=== PATIENT | female | born 1970 | race Caucasian/White ===

== ENCOUNTER 2017-10-28 02:08 | Inpatient (IN) | payer OTHER, MEDICARE ==
[~2017-10-28] VITALS: Ht 165.1 cm; Wt 89.5 kg
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
[2017-10-28] MEDS ORDERED: BACLOFEN20 M1 PO (02:25)
[2017-10-28] MEDS ORDERED: NAPRELAN PO (02:26)
[2017-10-28] MEDS ORDERED: MINIPRESS2 M1 PO (02:26)
[2017-10-28] MEDS ORDERED: VALIUM2 M1 PO (02:27)
[2017-10-28 03:38] LABS: ABSOLUTE BASOPHIL COUNT 0 /CUMM (0.0-0.2); ABSOLUTE EOSINOPHIL COUNT 0.1 /CUMM (0.0-0.7); ABSOLUTE GRANULOCYTE CT 5.3 /CUMM (1.4-6.5); ABSOLUTE LYMPH COUNT 2.8 /CUMM (1.2-3.4); ABSOLUTE MONOCYTE COUNT 0.5 /CUMM (0.10-0.60); BASOPHIL % 0.4 % (0.0-2.0); EOSINOPHIL % 1.7 % (0-5); GRANULOCYTE % 59.5 % (42.2-75.2); HEMATOCRIT 37.3 % (37-47); MEAN CORPUSCULAR HGB 28.4 PG (27.0-31.0); MEAN CORPUSCULAR HGB CONC 33.4 G/DL (33.0-37.0); MEAN CORPUSCULAR VOLUME 85.2 FL (81.0-99.0); MEAN PLATELET VOLUME 9.3 FL (7.4-10.4); PLATELET COUNT 343 /CUMM (130-400); RBC DISTRIBUTION WIDTH 14.3 % (11.5-14.5); RED BLOOD CELL CT 4.38 /CUMM (4.20-5.40); WHITE BLOOD CELL COUNT 8.8 /CUMM (4.8-10.8)
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
[2017-10-28] MEDS ORDERED: ABILIFY10 M1 PO (12:06)
[2017-10-28] MEDS ORDERED: LAMOTRIGINE25 M3 PO (12:06)
[2017-10-28] MEDS ORDERED: TIVICAY50 M1 PO (12:07)
[2017-10-28] MEDS ORDERED: LATUDA60 M1 PO (12:07)
[2017-10-28] MEDS ORDERED: DESCOVY 200-251 EACH PO (12:07)
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
[2017-10-30 16:24] VITALS: BP 132/86
[2017-10-30 17:00] VITALS: BP 132/86
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
[2017-10-30 20:04] VITALS: BP 137/93
[2017-10-30 20:09] VITALS: BP 137/93
[2017-10-31] VITALS (7 sets, daily range): BP systolic 121–142; BP diastolic 62–91
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
[2017-11-01] VITALS (7 sets, daily range): BP systolic 119–137; BP diastolic 64–78
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
--- NOTE | 2017-11-01 16:04 | SOCIAL WORKER PROG NOTE PSYCH ---
Social Work Progress Note Progress Note This fiction and nonfiction writer prose spoke with Rosa Elena at [facility] who stated that they continue to look for a fci this patient can go to. She agreed to call this fiction and nonfiction writer prose with updates and confirmed this fiction and nonfiction writer prose's phone number. This fiction and nonfiction writer prose met with the patient. She stated that she spoke with her mobile developer and learned that she does not have a warrant and that probation does not need to be contacted regarding this matter. Patient was informed of the conversation this fiction and nonfiction writer prose had with Rosa Elena at [facility]. Upon her request, patient and this fiction and nonfiction writer prose contacted [facility] and spoke with Dina who stated that she is waiting to hear from a fci in [place] and would contact this fiction and nonfiction writer prose once she has spoken with them. Patient stated that she is on a wait list with the [facility] inpatient unit, but would like to attend [facility] first. She was agreeable to a family meeting with her friend, Johnathon Morin. He was contacted by phone ) and agreed to call this fiction and nonfiction writer prose with some meeting time options for tomorrow. This fiction and nonfiction writer prose spoke with patient's mother, Larissa ([phone]) who lives in [place], [place], at patient's request. Larissa discussed patient's history of treatment non-compliance or completing a program only to revert to past behaviors. Larissa expressed concerns about patient's safety regarding other people being aggressive or unsafe towards her. Larissa denied any concerns about the patient being unsafe towards herself or others. Larissa was informed of ongoing effort to identify a place for the patient to discharge to as well as treatment. Larissa thanked this fiction and nonfiction writer prose for the call and stated that the patient has reported "only good things to say about the hospital []." Referral form and medication list was faxed to [facility] in [facility].
--- NOTE | 2017-11-01 17:30 | SOCIAL WORKER PROG NOTE PSYCH ---
Social Work Progress Note Progress Note This proposal writer received call from Keely at the [facility]. She stated that they have a bed available and that the patient could be accepted tomorrow (rather than tonight) if more time is needed to schedule outpatient treatment. She recommended [facility] or [place]. Keely stated that the living arrangement allows for the patient to have a room to her own and stated that not all residents are part of their program. Keely inquire about reason for hospital admission as well as substance use. She stated that she would continue to search for a longer term intermediate as this one is 3-5 days or up to a week. (Patient was agreeable to this.) Keely also stated that she would explore shelters that offer more support and will be in contact with this proposal writer tomorrow.
[2017-11-02] VITALS (8 sets, daily range): BP systolic 134–141; BP diastolic 63–79
--- NOTE | 2017-11-02 14:13 | CP SOUTH PROGRESS NOTE PSYCH ---
Psych (Inpt) Progress Note Progress Note Include the following elements, when applicable: Involvement in the active treatment of the patient with behavioral observations of the patient and the patient's response to the treatment. Review of the ongoing treatment process in the context of the treatment plan. Indication of how multi-disciplinary staff members are carrying out the treatment plan. Plans for future interventions and recommendations for revision of the treatment plan. Liaison with other physicians/providers. Progress Note: Case and treatment plan discussed in team meeting. Staff reports that the patient is denying suicidal ideation. Appearing a little bit labile and disorganized. Easily agitated. It seemed as though patient might been placed at the [facility] in [place] but that fell through, as that setting is not structured enough. Urine for chlamydia returned negative but it was not run for GC. I have ordered GC as an add-on. Patient seen at 11:30 AM. She was napping prior to meeting with me in office. Affect is irritable. She reports she is angry because she lost her bed in [place] at the [facility]. States she does not need staff support wherever she is placed. Feels frustrated. Reports she has lots of things to take care of (on the outside). Reports she has a court date on Monday. She seems upset. Her thinking is mildly disorganized. Mood: frustrated. Rates sad mood 0/10. Rates anxiety 4/10 and she attributes this to not being on benzodiazepines. Denies feeling hopeless, helpless, worthless or guilty. Denies active and passive suicidal ideation. Denies homicidal ideation. Denies auditory and visual hallucinations and paranoid ideation. Reports sleeping well. Reports appetite and energy are good. Tolerating medications except reports dry mouth. Patient agrees to increase lithium dose to 300 mg every morning and 600 mg nightly. IMPRESSION: Slow progress. Continue present treatment plan. Remains somewhat labile. We continued to look into placement options for the patient. She indicated she would be signing-in voluntarily.
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
[2017-11-03 07:36] VITALS: BP 136/72
[2017-11-03 07:44] VITALS: BP 136/72
[2017-11-03 11:57] VITALS: BP 127/75; BP 138/64
[2017-11-03] MEDS ORDERED: PRAZOSIN HCL2 M1 PO (12:07)
[2017-11-03] MEDS ORDERED: LITHIUM CARBON300 M4 PO (12:07)
[2017-11-03] MEDS ORDERED: TRAZODONE HCL50 M1 PO (12:07)
[2017-11-03] MEDS ORDERED: LATUDA120 M1 PO (12:07)
[2017-11-03] MEDS ORDERED: NICORETTE2 M2 PO (12:07)
[2017-11-03] MEDS ORDERED: ONDANSETRON ODT4 M1 PO (12:07)
[2017-11-03] MEDS ORDERED: GABAPENTIN300 M2 PO (12:07)
[2017-11-03] MEDS ORDERED: ONE DAILY MULT1 EAC2 PO (12:07)
[2017-11-03] MEDS ORDERED: OMEPRAZOLE20 M2 PO (12:07)
[2017-11-03] MEDS ORDERED: LORATADINE10 M1 PO (12:07)
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
--- NOTE | 2017-11-03 14:28 | CP SOUTH PROGRESS NOTE PSYCH ---
Psych (Inpt) Progress Note Progress Note Include the following elements, when applicable: Involvement in the active treatment of the patient with behavioral observations of the patient and the patient's response to the treatment. Review of the ongoing treatment process in the context of the treatment plan. Indication of how multi-disciplinary staff members are carrying out the treatment plan. Plans for future interventions and recommendations for revision of the treatment plan. Liaison with other physicians/providers. Progress Note: Case and treatment plan discussed in team meeting. Staff reports that the patient is denying suicidal ideation. Staff reports that the patient appears well. A little hyperverbal and pressured. Patient seen at 12:17 PM with medical student. Patient states "I'm so good." Finds it difficult to be patient (waiting). Feels excited because everything fell into place. Affect is upbeat/ebullient but not manic. Reports mood is good, stating that it is balanced and she is happy. Rates sad mood 0/10 and anxiety 2/10. Denies feeling hopeless, helpless, worthless or guilty. Denies active and passive suicidal ideation. Denies homicidal ideation. Denies auditory and visual hallucinations and paranoid ideation. Describes her sleep last night as "interesting." Reports she was able to sleep with use of trazodone. Describes appetite as good, a little too good. She plans to exercise more. Describes energy as good. Tolerating medications well. Patient was advised to avoid NSAIDs while on lithium. Feels ready and safe for discharge. Patient was advised that she needs to have a lithium level done next week through [facility]. IMPRESSION: Condition improved. Okay for discharge today to go to [place] [facility]. Patient will follow up with [facility] in [place].
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
--- NOTE | 2017-11-03 17:21 | SOCIAL WORKER PROG NOTE PSYCH ---
Social Work Progress Note Progress Note This movie writer spoke with Gertrude at [facility]. Patient was offered an IOP intake appointment for 11/08/17, at 8:45am, which she accepted. Shubham at the [facility] in [place] was contacted by phone and informed of the IOP intake date, which was a requirement for the patient to be accepted into their nursing home. She stated that the patient will be provided with bus tokens in order to get to appointments. Upon her inquiry, Shubham was informed that the patient will warehouse order picker her prescriptions at prior to leaving. In addition, Shubham was informed that the patient has prescriptions at another pharmacy which can be delivered to her tonight or tomorrow. She agreed to speak with nursing home staff about this. Shubham directed this movie writer to contact [facility] to coordinate a ride to the nursing home. Shubham stated that this movie writer did not need to provide any information (i.e. patient health summary) upon discharge. This movie writer met with patient. She discussed looking forward to discharge today, going to the nursing home and attending IOP through [facility]. She denied SI/HI/ AH/VH. She identified a safety plan in which she would "reach out to a professional - a therapist, hotline or call 911." She was also informed that she would be provided with crisis numbers and warm lines upon discharge. Patient refused having a meeting with Johnathon and did not want this movie writer to contact Johnathon regarding discharge plans. Patient was informed that [facility] would be contacted to schedule a ride to the nursing home. Patient was also informed of the Smoking Cessation Group (every other Monday at 4pm, next group - November 08, at [address] [place] [address], ) This movie writer spoke with Dontrell (design supervisor) at [facility]. Patient will be provided transportation by [facility] from to the train station where she will take the train to [place]. From there, patient will be provided transportation from the train station to the nursing home by a cab or nursing home staff. This was reviewed with Dr. Lorenzo as well as with the patient; all were in agreement. Faxed Referral(s) Referred To: [facility] Transition of Care Documents sent: Health Summary Faxed to: [facility] Fax #: [phone] Faxed by: Jose Grey LEAD PHARMACY TECHNICIAN Date faxed: 11/03/17 Time Faxed: [phone]
== END 2017-11-03 15:24 | DRG 885 ==
LOC: ERH 02:08 → CP SOUTH 10-30 10:40 → ERHI 10-30 10:40 → ENRESERV 10-30 14:30 → ENTRNSPT 10-30 16:02 → EDTRNSPTSTS 10-30 16:13 → EDTRNSPT 10-30 16:13 → CP SOUTH 10-30 16:18 → CMPTRNSPT 10-30 16:21 → CP SOUTH 11-03 15:24
PROVIDERS: Emergency Medicine
DX: F20.89 Other schizophrenia (principal); F14.90 Cocaine use, unspecified, uncomplicated; F43.9 Reaction to severe stress, unspecified; F43.10 Post-traumatic stress disorder, unspecified; Z79.899 Other long term (current) drug therapy
CPT/HCPCS: 71046; 80307; 81025; 87491; 87591; 93005; 93010; G0463; G0480; J3101; J3490